=== PATIENT | male | born 1965 | race Caucasian/White ===

== ENCOUNTER 2017-04-10 15:30 | Emergency (ER) | payer OTHER ==
[~2017-04-10] VITALS: Ht 177.8 cm; Wt 136.1 kg
[~2017-04-10 15:30] MED LIST: BACTRIM DS TABL1 TA1 PO; BACTRIM DS TABL1 TAB PO; VOLTAREN75 MG PO
== END 2017-04-10 16:39 | disposition home or self-care (01) ==
LOC: CFTX 15:30 → CED 15:30 → CFTX 16:14
DX: S05.01XA Injury of conjunctiva and corneal abrasion without foreign body, right eye, initial encounter (principal); I10 Essential (primary) hypertension; E78.5 Hyperlipidemia, unspecified; Z88.1 Allergy status to other antibiotic agents; X58.XXXA Exposure to other specified factors, initial encounter; Y92.9 Unspecified place or not applicable
CPT/HCPCS: 99283